=== PATIENT | male | born 1960 | race Caucasian/White ===

== ENCOUNTER 2016-10-28 09:19 | Inpatient (IN) ==
--- NOTE | 2016-10-28 09:48 | Emergency Department Note ---
Disposition Clinical Impression: Acute cholecystitis Disposition: Admitted As Inpatient Condition: Good Referrals: NO,PCP [Non-Partnered Physician] - Forms: Work/School Release, ED Satisfaction Letter Time of Disposition: 11:27 Abdominal Pain HPI - General Chief Complaint: ED Abdominal Pain Stated Complaint: lower rib cage / ABD pain Time Seen by Provider: 10/28/16 09:42 Source: patient Mode of arrival: ambulatory Limitations: no limitations Nursing Notes Reviewed: Yes Vital Signs Reviewed: Yes - History of Present Illness HPI Narrative: 56-year-old male who comes in complaining of right upper quadrant pain that began over the last couple of days. States about 2 hours after eating hamburger helper he developed the pain. She also states that he sprayed some bug spray didn't know if inhaling that would've caused the pain. No nausea vomiting no diarrhea. Pt Subjective Complaint: abdominal pain Onset (ago): day(s) Consistency: constant Location: RUQ Pain Severity: mild, moderate Pain Scale: 0 Quality: aching Radiation: none Migration to: no migration Improves with: nothing Worsens with: eating - Related Data Home Medications Medication Instructions Recorded Confirmed Lisinopril [Zestril] 10 mg PO 08/23/16 Turmeric Root Extract [Turmeric] 08/23/16 Previous Rx's Medication Instructions Recorded Meclizine HCl [Verticalm] 25 mg PO Q8H #15 tablet 08/23/16 Allergies Allergy/AdvReac Type Severity Reaction Status Date / Time No Known Allergies Allergy Verified 10/28/16 09:28 All systems ED: reviewed and negative except as stated. Constitutional: Denies: fever, chills, weakness, weight change Eyes: Denies: eye pain, eye discharge, vision change ENT ED: Denies: ear pain, throat pain, dental pain, hearing loss, epistaxis, congestion, dysphagia Cardiovascular: Denies: chest pain, palpitations, dyspnea on exertion, edema, syncope Respiratory: Denies: cough, dyspnea, wheezes, hemoptysis, stridor Gastrointestinal: Reports: abdominal pain. Denies: nausea, vomiting, diarrhea, constipation, hematemesis, melena, hematochezia Genitourinary: Denies: urgency, dysuria, frequency, hematuria Musculoskeletal: Denies: back pain, neck pain, arthralgia, myalgia Integumentary: Denies: rash, abrasion, lesions Neurological: Denies: headache, weakness, numbness, paresthesias, confusion, abnormal gait, vertigo Psychiatric: Denies: anxiety, depression, suicidal thoughts, homicidal thoughts , auditory hallucinations, visual hallucinations Endocrine: Denies: fatigue Hematological/Lymphatic: Denies: easy bleeding, easy bruising Allergic/Immunologic: Denies: facial swelling, urticaria Abdominal Pain PMH - Past Medical History Medical history: Reports: GERD, hypertension Male Surgical History: Reports: orthopedic, other, other Psychiatric history: Reports: depression - Social History Smoking status: Never smoker Alcohol use: Reports: none Drug use: Reports: none Physical Exam - General Limitations: no limitations General appearance: alert, in no apparent distress - Head Head exam: atraumatic, normocephalic, normal inspection - Eye Eye exam: Present: normal appearance, PERRL, EOMI - ENT ENT exam: normal exam, normal oropharynx, mucous membranes moist - Neck Neck exam: Present: normal inspection, full ROM, trachea midline - Chest Chest inspection: Present: normal inspection, symmetric chest wall rise - Respiratory Respiratory exam: Present: normal lung sounds bilaterally - Cardiovascular Cardiovascular exam: Present: regular rate, normal rhythm, normal heart sounds - Abdominal Exam Abdominal exam: Present: soft, tenderness. Absent: distention, guarding, rebound, rigidity Abdominal tenderness: Present: RUQ - Extremities Exam Extremities exam: Present: normal inspection, full ROM. Absent: tenderness, pedal edema - Expanded Lower Extremity Exam Neurovascular/Tendon exam: Absent: motor deficit, sensory deficit, tendon deficit Gait: observed and normal - Back Exam Back exam: Present: normal inspection, full ROM. Absent: tenderness - Neurological Exam Neurological exam: Present: alert, oriented X3 - Psychiatric Psychiatric exam: Present: normal affect, normal mood - Skin Skin exam: Present: warm, dry, intact, normal color Course - Reevaluation(s) Reevaluation #1: 56-year-old male comes in with right upper quadrant pain. Workup including ultrasound shows gallstones thickened gallbladder wall pericholecystic fluid. White count is normal. Liver functions are elevated. Patient will be admitted for MRCP, surgical consultation. Time: 12:09 - Consultations Consultation #1: Discussed with Dr. Jeferson salas to hospitalist and obtain an MRCP. Time: 11:25 Consultation #2: Discussed with maritza Henry. Time: 12:09 Vital Signs Temperature 98 F 06/07/17 09:23 Pulse Rate 80 10/28/16 09:23 Respiratory Rate 16 10/28/16 09:23 Blood Pressure 151/83 10/28/16 09:23 O2 Sat by Pulse Oximetry 96 10/28/16 09:23 Temperature 98 F 10/28/16 09:23 Pulse Rate 80 10/28/16 11:50 Respiratory Rate 16 10/28/16 11:50 Blood Pressure 134/90 10/28/16 11:50 O2 Sat by Pulse Oximetry 100 10/28/16 11:50 Oxygen Delivery Oxygen Delivery Room Air Abdominal Pain - Lab Data Lab results reviewed: Yes I reviewed the patient's lab results. Result diagrams: 10/28/16 09:50 10/28/16 09:50 Lab Results 10/28/16 10/28/16 10/28/16 Range/Units 09:49 09:50 09:50 WBC 7.2 (4.3-11.1) K/mcL RBC 5.19 (4.19-5.50) M/mcL Hgb 15.4 (12.9-16.9) g/dL Hct 45.9 (37.5-50.1) % MCV 88.4 (83.0-100.0) fL MCH 29.7 (28.0-33.3) pg MCHC 33.6 (31.6-35.5) g/dL RDW 12.7 (11.5-14.5) % Plt Count 190 (140-400) K/mcL MPV 9.0 L (9.4-12.4) fL Immature Gran % 0.4 (0-4) % Seg Neutrophils % 71.7 % Lymphocytes % 13.8 % Monocytes % 12.0 % Eosinophils % 1.7 % Basophils % 0.4 % Neutrophils # 5.2 (1.6-8.9) K/mcL Lymphocytes # 1.0 (0.6-4.6) K/mcL Monocytes # 0.9 (0.0-1.3) K/mcL Eosinophils # 0.1 (0.0-0.6) K/mcL Basophils # 0.0 (0.0-0.2) K/mcL Sodium 138 (136-145) mEq/L Potassium 4.5 (3.5-4.5) mEq/L Chloride 106 (98-109) mEq/L Carbon Dioxide 26 (19-29) mEq/L BUN 13 (8-26) mg/dL Creatinine 0.95 (0.72-1.25) mg/dL Est GFR ( Amer) > 60 (> 60) Est GFR (Non-Af Amer) > 60 (> 60) BUN/Creatinine Ratio 14 (6-26) Glucose 112 H (70-99) mg/dL Calculated Osmolality 287 (280-300) Calcium 9.9 (8.6-10.8) mg/dL Total Bilirubin 2.3 H (0.2-1.2) mg/dL Direct Bilirubin 1.4 H (0.0-0.5) mg/dL Indirect Bilirubin 0.9 (0.0-1.2) mg/dL AST 211 H (5-34) Units/L ALT 506 H (0-55) Units/L Alkaline Phosphatase 226 H (38-126) Units/L Serum Total Protein 7.2 (6.0-8.3) g/dL Albumin 3.6 (3.5-5.0) g/dL Globulin 3.6 H (2.4-3.5) g/dL Albumin/Globulin Ratio 1.0 L (1.1-2.2) Amylase 78 (25-125) Units/L Lipase 221 H (8-78) Units/L Urine Color Dark Yellow (Yellow) Urine Clarity Clear (Clear) Urine pH 6.0 (5.0-8.0) pH Units Ur Specific [place] 1.023 (1.010-1.025) Urine Protein Negative (Neg-Trace) mg/dL Urine Glucose (UA) Normal (Normal) mg/dL Urine Ketones Negative (Negative) mg/dL Urine Blood Trace H (Negative) Urine Nitrite Negative (Negative) Urine Bilirubin Moderate H (Negative) Urine Urobilinogen Normal (Normal) mg/dL Ur Leukocyte Esterase Small H (Negative) Urine Microscopic RBC 0-3 (0-3) per hpf Urine Microscopic WBC 0-3 (0-3) per hpf Urine Bacteria None Seen (None-Few) per hpf Ur Culture Indicated? YES A (NO) - Radiology Data Radiology results reviewed: Yes I reviewed the patient's radiology results. Gallbladder Ultrasound 10/28/16 09:46 IMPRESSION: 1. Findings concerning for acute cholecystitis. 2. Hepatic steatosis. D/ / William Cueto MD / William Cueto MD Interpreting Provider: William Cueto MD
[2016-10-28 10:08] LABS: Bilirubin,Urine Moderate (Negative); Blood,Urine Trace (Negative); Clarity,Urine Clear (Clear); Color,Urine Dark Yellow (Yellow); Glucose,Urine (UA) Normal (Normal); Ketones,Urine Negative (Negative); Specific Gravity,Urine 1.023 (1.010-1.025)
[2016-10-28 10:09] LABS: Leukocyte Esterase,Urine Small (Negative); Nitrite,Urine Negative (Negative); Protein,Urine Negative (Neg-Trace); Urobilinogen,Urine Normal (Normal)
[2016-10-28 10:16] LABS: RBC,Urine 0-3 per hpf (0-3)
[2016-10-28 10:17] LABS: Bacteria,Urine None Seen per hpf (None-Few); WBC,Urine 0-3 per hpf (0-3)
[2016-10-28 11:01] LABS: Basophils % 0.4 %; Eosinophils # 0.1 K/mcL (0.0-0.6); Eosinophils % 1.7 %; Hematocrit 45.9 % (37.5-50.1); Hemoglobin 15.4 g/dL (12.9-16.9); Immature Granulocytes % 0.4 % (0-4); Lymphocytes % 13.8 %; Mean Corpuscular HGB Conc 33.6 g/dL (31.6-35.5); Mean Corpuscular Hemoglobin 29.7 pg (28.0-33.3); Mean Corpuscular Volume 88.4 fL (83.0-100.0); Monocytes # 0.9 K/mcL (0.0-1.3); Neutrophils # 5.2 K/mcL (1.6-8.9); Platelet Count 190 K/mcL (140-400); Red Blood Count 5.19 M/mcL (4.19-5.50); Red Cell Distribution Width 12.7 % (11.5-14.5); Segmented Neutrophils % 71.7 %
[2016-10-28 11:05] LABS: Alanine Aminotransferase 506 Units/L (0-55); Albumin 3.6 g/dL (3.5-5.0); Alkaline Phosphatase 226 Units/L (38-126); Amylase 78 Units/L (25-125); Aspartate Amino Transferase 211 Units/L (5-34); BUN/Creatinine Ratio 14 (6-26); Bilirubin,Direct 1.4 mg/dL (0.0-0.5); Bilirubin,Indirect 0.9 mg/dL (0.0-1.2); Bilirubin,Total 2.3 mg/dL (0.2-1.2); Blood Urea Nitrogen 13 mg/dL (8-26); Calcium 9.9 mg/dL (8.6-10.8); Carbon Dioxide 26 mEq/L (19-29); Chloride 106 mEq/L (98-109); Globulin 3.6 g/dL (2.4-3.5); Glucose 112 mg/dL (70-99); Lipase 221 Units/L (8-78); Osmolality,Calculated 287 (280-300); Potassium 4.5 mEq/L (3.5-4.5); Sodium 138 mEq/L (136-145); Total Protein 7.2 g/dL (6.0-8.3); eGFR For African Americans > 60 (> 60); eGFR For Non-African Americans > 60 (> 60)
[2016-10-28] MEDS ORDERED: Piperacillin/Tazobactam 3.375 GM in D5% in Water (Mini-Bag+) 100 ML IVPB ONE (12:08)
[2016-10-28] MEDS ORDERED: Ondansetron 4 MG/2 ML VIAL IVP PRN (12:29)
[2016-10-28] MEDS ORDERED: *HR* Morphine 2 MG/ML SYRINGE IVP PRN (12:29)
[2016-10-28] MEDS ORDERED: Naloxone 0.4 MG/ML INJ IVP PRN (12:29)
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
[2016-10-28 13:34] LABS: INR 1.1; Prothrombin Time 11.7 Seconds (9.4-12.1)
[2016-10-28 14:35] LABS: Hepatitis A Antibody IgM Nonreactive (Nonreactive); Hepatitis B Core IgM Nonreactive (Nonreactive); Hepatitis B Surface Antigen Nonreactive (Nonreactive); Hepatitis C Virus Antibody Nonreactive (Nonreactive)
[2016-10-28] MEDS: 0.9 % Sodium Chloride 1,000 ML IVC SCH (15:00)
[2016-10-28] MEDS: Piperacillin/Tazobactam 3.375 GM in D5% in Water (Mini-Bag+) 100 ML IVPB SCH (21:02)
[2016-10-29] MEDS: 0.9 % Sodium Chloride 1,000 ML IVC SCH ×2 (02:07→14:29)
[2016-10-29] MEDS: Piperacillin/Tazobactam 3.375 GM in D5% in Water (Mini-Bag+) 100 ML IVPB SCH ×2 (04:48→21:32)
[2016-10-29 05:52] LABS: Basophils % 0.5 %; Eosinophils # 0.2 K/mcL (0.0-0.6); Eosinophils % 3.7 %; Hematocrit 43.8 % (37.5-50.1); Hemoglobin 14.8 g/dL (12.9-16.9); Immature Granulocytes % 0.5 % (0-4); Lymphocytes # 1.4 K/mcL (0.6-4.6); Lymphocytes % 23.5 %; Mean Corpuscular HGB Conc 33.8 g/dL (31.6-35.5); Mean Corpuscular Hemoglobin 30.3 pg (28.0-33.3); Mean Corpuscular Volume 89.8 fL (83.0-100.0); Mean Platelet Volume 9.2 fL (9.4-12.4); Monocytes # 0.8 K/mcL (0.0-1.3); Monocytes % 12.8 %; Neutrophils # 3.5 K/mcL (1.6-8.9); Platelet Count 186 K/mcL (140-400); Red Blood Count 4.88 M/mcL (4.19-5.50); Red Cell Distribution Width 12.8 % (11.5-14.5)
[2016-10-29 07:40] LABS: Albumin 3.3 g/dL (3.5-5.0); Bilirubin,Direct 0.6 mg/dL (0.0-0.5); Bilirubin,Indirect 0.7 mg/dL (0.0-1.2); Bilirubin,Total 1.3 mg/dL (0.2-1.2); Globulin 3.2 g/dL (2.4-3.5); Magnesium 1.8 mg/dL (1.6-2.6); Total Protein 6.5 g/dL (6.0-8.3)
--- NOTE | 2016-10-29 10:07 | Anesthesia Evaluation PreOp ---
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 (Depression) Other Medical History: Hepatic (steatosis), GERD Anesthesia History: No Prior Anesthetic Complications, Past Anesthesia Alcohol Use: none Drug use: none Medications and Allergies Lisinopril [Zestril] 10 mg PO DAILY 08/23/16 [History] ASA/Calcium Carb/Mag/Al Hydrox [Rodrick Plus 500 mg Caplet] 500 mg PO DAILY PRN [History] Famotidine [Pepcid] 20 mg PO DAILY 10/28/16 [History] Allergies No Known Allergies Allergy (Verified 10/28/16 12:16) - Meds/Allergy Pre-op Review Medications Reviewed: Yes Allergies Reviewed: Yes Beta Blockers on Current Med List: No Anesthesia Results - Labs 10/29/16 05:29 10/28/16 09:50 - Imaging EKG: image reviewed (SR, Right nentricular conduction delay) Anesthesia Exam O2 Sat Weight 100.062 kg O2 Sat by Pulse Oximetry 97 O2 Sat by Pulse Oximetry 97 O2 Sat by Pulse Oximetry 97 O2 Sat by Pulse Oximetry 98 O2 Sat by Pulse Oximetry 98 O2 Sat by Pulse Oximetry 100 Vital Signs Temp Pulse Resp BP Pulse Ox 98 F 80 16 151/83 96 10/28/16 09:23 10/28/16 09:23 10/28/16 09:23 10/28/16 09:23 10/28/16 09:23 Vital Signs/O2 Sat, Most Current Temp Pulse Resp BP Pulse Ox 98.0 F 60 16 113/72 97 10/29/16 07:30 10/29/16 07:30 10/29/16 07:30 10/29/16 07:30 10/29/16 07:30 - HEENT Pupil (Motor): Pupils equal, EOMI Mallampati: II Teeth: Normal Oral Opening: Greater than 3 - 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
--- NOTE | 2016-10-29 10:48 | Operative Note ---
Date of procedure: 10/29/16 Pre-op diagnosis: Acute cholecystitis Post-op diagnosis: same Procedure: Laparoscopic cholecystectomy with cholangiogram Anesthesia: RENEE Surgeon: Alonso Govea Estimated blood loss (cc): 5 Specimen: Gallbladder Procedure in Detail: After informed consent this patient was taken the operating room placed supine position. After adequate sedation anesthesia the abdomen was prepped and draped. A proper timeout was performed. Two towel clamps are placed at the umbilicus and a Veres needle was inserted into the abdomen. A 5 mm incision was made at the umbilicus. A 12 mm incision was made in the subxiphoid region. Two 5 mm incisions were made in the right upper quadrant that were 4 finger breadths and 6 finger breadths below the costal margin. The gallbladder was identified, retracted anteriorly and cephalad, and the infundibulum was skeletonized. The cystic duct was easily identified and was dissected free. A ductotomy was created in the cystic duct. A taut catheter was placed within the cystic duct and clipped. A cholangiogram was performed. Contrast filled the cystic duct, common hepatic duct, hepatic radicles, and the distal common bile duct. There was flow of contrast into the duodenum. Once this was confirmed the clippers removed, the taut catheter was removed as well, and the cystic duct was clipped distally. The cystic duct was then transected with scissors. The gallbladder was resected off the liver surface. There was excellent hemostasis. The gallbladder was then retrieved through the 12 mm cannula site. At this point the abdomen was suctioned dry and the pneumoperitoneum was then evacuated. All ports were removed. The 12 mm cannula site was closed with an 0 Vicryl suture in [id number] fashion. The skin was closed with 4-0 Vicryl suture. Dermabond was placed as well. All instrument counts and needle counts are correct in the operation. She tolerated the procedure well and was transferred to the PACU in stable condition.
[2016-10-29] MEDS ORDERED: *HR* Promethazine 25 MG/ML VIAL IVP PRN ×2 (11:39→12:42)
[2016-10-29] MEDS ORDERED: *HR* Labetalol 20 MG/4 ML SYRINGE IVP PRN ×2 (11:39→12:42)
[2016-10-29] MEDS ORDERED: Ondansetron 4 MG/2 ML VIAL IVP ONE ×2 (11:39→12:42)
[2016-10-29] MEDS ORDERED: *HR* Morphine 2 MG/ML SYRINGE IVP PRN ×4 (11:39→14:09)
[2016-10-29] MEDS ORDERED: *HR* HYDROmorphone (PF) 1 MG/ML SYRINGE IVP PRN ×2 (11:39→12:42)
[2016-10-29] MEDS ORDERED: CefOXitin 2,000 MG VIAL IVPB ONE (12:13)
[2016-10-29] MEDS ORDERED: Ondansetron 4 MG/2 ML VIAL ONE (12:13)
[2016-10-29] MEDS ORDERED: Dexamethasone 4 MG/ML VIAL ONE (12:13)
[2016-10-29] MEDS ORDERED: *HR* Succinylcholine 200 MG/10 ML VIAL IVP ONE (12:13)
[2016-10-29] MEDS ORDERED: Neostigmine Methylsulfate 3 MG/3 ML SYRINGE ONE (12:13)
[2016-10-29] MEDS ORDERED: *HR* Rocuronium Bromide 50 MG/5 ML VIAL ONE (12:14)
[2016-10-29] MEDS ORDERED: *HR* Propofol 200 MG/20 ML VIAL IVP ONE (12:14)
[2016-10-29] MEDS ORDERED: Lidocaine -MPF 2% 2 ML VIAL ONE (12:14)
[2016-10-29] MEDS ORDERED: *HR* FentaNYL (PF) 100 MCG/2 ML VIAL ONE (12:14)
[2016-10-29] MEDS ORDERED: *HR* Midazolam HCl 2 MG/2 ML VIAL ONE (12:14)
[2016-10-29] MEDS ORDERED: Ondansetron 4 MG/2 ML VIAL IVP PRN (12:42)
[2016-10-29] MEDS ORDERED: Naloxone 0.4 MG/ML INJ IVP PRN (12:42)
--- NOTE | 2016-10-29 12:42 | Anesthesia Evaluation Post Op ---
Date of Encounter: 10/29/16 Time of Encounter: 12:42 - Vital Signs Vital Signs: Vital Signs/O2 Sat/Glucose, Most Current Temp Pulse Resp BP Pulse Ox 10/29/16 12:31 66 16 147/82 97 10/29/16 12:21 66 16 159/89 97 10/29/16 12:11 97.4 F L 67 16 148/92 98 - Lungs Lungs: Clear Ascult./Percussion - Airway Airway: Non-obstructed - Cardiovascular Regular Rate - Mental Status Mental Status: Alert & Oriented, Answers Appropriately - Pain Pain Scale: 2 Pain Scale used: Numeric (1 - 10) - Nausea Vomiting Nausea Vomiting: Not Present - Hydration Hydration: NPO - Discharge PostOp Status: Transfer Patient to floor
[2016-10-29] MEDS ORDERED: *HR* Morphine 2 MG/ML SYRINGE ONE (12:57)
--- NOTE | 2016-10-29 15:36 | Internal Med Progress Note ---
Date of Encounter: 10/29/16 Time of Encounter: 09:00 - Assessment and plan (1) Acute cholecystitis Current Visit: Yes Status: Acute Assessment and plan: Awaiting surgical evaluation. MRI of the abdomen does not show any choledocholithiasis. Patient will most likely need laparoscopic cholecystectomy. Liver enzymes are trending down. Lipase remains elevated. High risk for complications due to use of intravenous narcotic medications to control pain (2) Essential hypertension Current Visit: Yes Status: Chronic Assessment and plan: On hydralazine as needed. Resume home medications after surgery. (3) DVT prophylaxis Current Visit: Yes Status: Acute Assessment and plan: Will start DVT prophylaxis with subcutaneous heparin after surgery (4) Hepatic steatosis Current Visit: Yes Status: Chronic Assessment and plan: Liver enzymes trending down. Follow up outpatient with PCP. - Subjective Interval history: Patient is awake and alert. Not having significant abdominal pain this morning. Feels hungry and thirsty. Awaiting surgical evaluation - Constitutional Vitals: Temp Pulse Resp BP Pulse Ox 97.4 F L 80 16 144/82 98 10/29/16 14:10 10/29/16 14:10 10/29/16 14:10 10/29/16 14:10 10/29/16 14:10 General appearance: Present: cooperative, mild distress, A&O X 3, answers questions appropriately - Neck Neck exam general surgery: Present: supple, trachea midline. Absent: lymphadenopathy - Respiratory Respiratory exam: Present: CTAB. Absent: accessory muscle use, rales, rhonchi, wheezes - Cardiovascular Cardiovascular exam: Present: RRR, +S1, +S2. Absent: diastolic murmur, gallop, rubs, systolic murmur - GI/Abdominal GI/Abdominal exam: Present: normal bowel sounds, soft, no peritoneal signs. Absent: distended, tenderness - Extremities Exam Extremities exam: Present: warm, radial pulses palpable and symetrical. Absent : calf tenderness, cyanotic, pedal edema - Neurological Exam Neurological exam: Present: alert, oriented X3, no focal deficits. Absent: facial droop, speech deficit Internal Medicine: Result - Labs CBC & Chem 7: 10/29/16 05:29 10/28/16 09:50 Labs: Short CBC 10/29/16 Range/Units 05:29 WBC 6.0 (4.3-11.1) K/mcL Hgb 14.8 (12.9-16.9) g/dL Hct 43.8 (37.5-50.1) % Plt Count 186 (140-400) K/mcL Neutrophils # 3.5 (1.6-8.9) K/mcL Liver Function 10/29/16 Range/Units 05:29 Total Bilirubin 1.3 H (0.2-1.2) mg/dL Direct Bilirubin 0.6 H (0.0-0.5) mg/dL AST 93 H (5-34) Units/L ALT 348 H (0-55) Units/L Alkaline Phosphatase 206 H (38-126) Units/L Albumin 3.3 L (3.5-5.0) g/dL - ABG Interpretation ABG results: PT/INR, D-dimer PT 11.7 Seconds (9.4-12.1) 10/28/16 10:44 - Impressions Impressions Abdomen MRI 10/28/16 12:42 IMPRESSION: 1. Small gallstones and sludge. No visualized evidence of cholecystitis. An ultrasound may be more sensitive. 2. No evidence of biliary ductal dilation. No evidence of choledocholithiasis. D/ / 10/28/2016 20:19:15 Easton Garcia MD / [facility] Interpreting Provider: Easton Garcia MD Cholangiogram,Operative 10/29/16 10:54 IMPRESSION: Unremarkable intraoperative ERCP. D/ / Howard Webb MD / Howard Webb MD Interpreting Provider: Howard Webb MD - VTE Documentation of Mechanical Device: Venous foot pump, device Consult Discharge Plan - Plan Referrals: Kyara Romero, [employer] [Primary Care Provider] - 11/09/16 10:15 am - Attending Attestation This document has been at least partially created by [employer] recognition technology by Dr. Ascencio. Errors in grammar, wording or other phrases may exist. If errors are found after the documentation is signed, they will be addressed individually in the addendum section of this document when appropriate.
[2016-10-29] MEDS: *HR* HYDROmorphone (PF) 1 MG/ML SYRINGE IVP PRN ×2 (16:41→21:33)
[2016-10-29] MEDS ORDERED: Methocarbamol 750 MG TABLET PO PRN (21:56)
[2016-10-30] MEDS: *HR* HYDROmorphone (PF) 1 MG/ML SYRINGE IVP PRN ×2 (01:32→05:13)
[2016-10-30] MEDS: *HR* Heparin 5,000 UNIT/ML VIAL SQ SCH ×3 (05:12→17:18)
[2016-10-30] MEDS: Piperacillin/Tazobactam 3.375 GM in D5% in Water (Mini-Bag+) 100 ML IVPB SCH ×3 (05:15→19:50)
[2016-10-30 05:52] LABS: Basophils % 0.1 %; Eosinophils % 0.2 %; Hematocrit 41.8 % (37.5-50.1); Hemoglobin 13.7 g/dL (12.9-16.9); Immature Granulocytes % 0.4 % (0-4); Lymphocytes % 8.5 %; Mean Corpuscular HGB Conc 32.8 g/dL (31.6-35.5); Mean Corpuscular Hemoglobin 29.3 pg (28.0-33.3); Mean Corpuscular Volume 89.3 fL (83.0-100.0); Monocytes % 8.7 %; Neutrophils # 9.4 K/mcL (1.6-8.9); Platelet Count 206 K/mcL (140-400); Red Blood Count 4.68 M/mcL (4.19-5.50); Red Cell Distribution Width 12.7 % (11.5-14.5); Segmented Neutrophils % 82.1 %
[2016-10-30 06:05] LABS: Alanine Aminotransferase 277 Units/L (0-55); Aspartate Amino Transferase 59 Units/L (5-34); Chloride 107 mEq/L (98-109); Potassium 4.3 mEq/L (3.5-4.5); Sodium 140 mEq/L (136-145)
[2016-10-30 06:18] LABS: Albumin 3.1 g/dL (3.5-5.0); Albumin/Globulin Ratio 0.9 (1.1-2.2); Alkaline Phosphatase 170 Units/L (38-126); BUN/Creatinine Ratio 19 (6-26); Bilirubin,Total 0.9 mg/dL (0.2-1.2); Blood Urea Nitrogen 16 mg/dL (8-26); Calcium 8.8 mg/dL (8.6-10.8); Carbon Dioxide 24 mEq/L (19-29); Globulin 3.4 g/dL (2.4-3.5); Glucose 119 mg/dL (70-99); Osmolality,Calculated 292 (280-300); Total Protein 6.5 g/dL (6.0-8.3); eGFR For African Americans > 60 (> 60); eGFR For Non-African Americans > 60 (> 60)
[2016-10-30] MEDS ORDERED: *HR* OxyCODONE Immed Rel 5 MG TABLET PO PRN ×2 (07:55→11:37)
[2016-10-30] MEDS ORDERED: *HR* HYDROmorphone (PF) 1 MG/ML SYRINGE IVP PRN ×2 (07:57→11:37)
[2016-10-30] MEDS: 0.9 % Sodium Chloride 1,000 ML IVC SCH ×3 (11:08→22:30)
[2016-10-30] MEDS: Ketorolac 15 MG/ML VIAL IVP PRN ×2 (13:22→19:50)
--- NOTE | 2016-10-30 14:27 | General Surgery Progress Note ---
Date of Encounter: 10/30/16 Time of Encounter: 14:20 - Assessment and Plan (1) Acute cholecystitis Current Visit: Yes Status: Acute Patient may be advanced to regular diet. We will sign off at this point he may be discharged from our standpoint whenever the medicine team feels he is appropriate to go. Subjective Patient reports: other (Patient complains of dizziness. States he is hungry for hamburger) Objective Vital Signs - Last 8 Hours Temp Pulse Resp BP Pulse Ox 10/30/16 12:19 98.5 F 78 18 137/84 93 10/30/16 10:46 98.0 F 79 16 132/77 96 Intake and Output 10/29/16 10/30/16 10/30/16 23:59 07:59 15:59 Intake Total 1100 / 1100 220 / 220 Balance 1100 / 1100 220 / 220 Intake: IV Fluids 1100 / 1100 100 / 100 0.9 % Sodium Chloride 1, 1000 / 1000 000 ML @ 100 mls/hr IVC . Q10H TASHA Rx#:[id number] Zosyn 3.375 GM In 100 / 100 100 / 100 Dextrose 5% (Minibag+) 100 ML 100 ML @ 25 mls/hr IVPB Q8H TASHA Rx#: [id number] Oral 120 / 120 Other: Meal Breakfast Percent of Meal Consumed 15% # Voids 1 Weight 100.1 kg Patient Weight 10/30/16 23:59 Weight 100.1 kg - General physical appearance well nourished - Eyes PERRL, normal ocular movement - ENT normal nares - Respiratory normal expansion - Cardiovascular Cardiovascular exam: Present: RRR - Abdomen Abdomen: Present: bowel sounds present - Psychiatric oriented to time, oriented to person, oriented to place, other (Patient does have a not affect with inappropriate comments at times) - Labs 10/30/16 05:05 10/30/16 05:05 Diabetes panel 10/30/16 Range/Units 05:05 Sodium 140 (136-145) mEq/L Potassium 4.3 (3.5-4.5) mEq/L Chloride 107 (98-109) mEq/L Carbon Dioxide 24 (19-29) mEq/L BUN 16 (8-26) mg/dL Creatinine 0.84 (0.72-1.25) mg/dL Glucose 119 H (70-99) mg/dL Calcium 8.8 (8.6-10.8) mg/dL AST 59 H (5-34) Units/L ALT 277 H (0-55) Units/L Alkaline Phosphatase 170 H (38-126) Units/L Albumin 3.1 L (3.5-5.0) g/dL Calcium panel 10/30/16 Range/Units 05:05 Calcium 8.8 (8.6-10.8) mg/dL Albumin 3.1 L (3.5-5.0) g/dL Pituitary panel 10/30/16 Range/Units 05:05 Sodium 140 (136-145) mEq/L Potassium 4.3 (3.5-4.5) mEq/L Chloride 107 (98-109) mEq/L Carbon Dioxide 24 (19-29) mEq/L BUN 16 (8-26) mg/dL Creatinine 0.84 (0.72-1.25) mg/dL Glucose 119 H (70-99) mg/dL Calcium 8.8 (8.6-10.8) mg/dL Adrenal panel 10/30/16 Range/Units 05:05 Sodium 140 (136-145) mEq/L Potassium 4.3 (3.5-4.5) mEq/L Chloride 107 (98-109) mEq/L Carbon Dioxide 24 (19-29) mEq/L BUN 16 (8-26) mg/dL Creatinine 0.84 (0.72-1.25) mg/dL Glucose 119 H (70-99) mg/dL Calcium 8.8 (8.6-10.8) mg/dL Total Bilirubin 0.9 (0.2-1.2) mg/dL AST 59 H (5-34) Units/L ALT 277 H (0-55) Units/L Alkaline Phosphatase 170 H (38-126) Units/L Albumin 3.1 L (3.5-5.0) g/dL - VTE Documentation of Mechanical Device: Intermittent pneumatic compression device Consult Discharge Plan - Plan Referrals: Kyara Romero CNP [Primary Care Provider] - 11/09/16 10:15 am
[2016-10-31] MEDS: Ketorolac 15 MG/ML VIAL IVP PRN (02:24)
[2016-10-31] MEDS: Piperacillin/Tazobactam 3.375 GM in D5% in Water (Mini-Bag+) 100 ML IVPB SCH (04:55)
[2016-10-31] MEDS: *HR* Heparin 5,000 UNIT/ML VIAL SQ SCH (04:56)
[2016-10-31 06:56] VITALS: BP 126/73
[2016-10-31] MEDS ORDERED: Ibuprofen 400 MG TABLET PO PRN (09:05)
--- NOTE | 2016-10-31 10:17 | Discharge Summary ---
Date of Encounter: 10/31/16 Time of Encounter: 08:50 - Discharge Diagnosis (1) Acute cholecystitis Priority: Primary Status: Acute (2) Essential hypertension Priority: Secondary Status: Chronic (3) DVT prophylaxis Priority: Secondary Status: Acute (4) Hepatic steatosis Priority: Secondary Status: Chronic - Discharge Medications Prescriptions: Ibuprofen [Motrin] 800 mg PO Q8HR PRN #30 tablet PRN Reason: Pain Calcium Carbonate [Tums] 1,000 mg PO QID PRN #60 tab.chew PRN Reason: Indigestion Docusate [Colace] 100 mg PO BID PRN #20 capsule PRN Reason: Constipation Omeprazole [PriLOSEC] 40 mg PO DAILY #30 cap Home Medications: Lisinopril [Zestril] 10 mg PO DAILY 08/23/16 [History] ASA/Calcium Carb/Mag/Al Hydrox [Rodrick Plus 500 mg Caplet] 500 mg PO DAILY PRN [History] Calcium Carbonate [Tums] 1,000 mg PO QID PRN #60 tab.chew 10/31/16 [Rx] Docusate [Colace] 100 mg PO BID PRN #20 capsule 10/31/16 [Rx] Ibuprofen [Motrin] 800 mg PO Q8HR PRN #30 tablet 10/31/16 [Rx] Omeprazole [PriLOSEC] 40 mg PO DAILY #30 cap 10/31/16 [Rx] Allergies/Adverse Reactions: Allergies No Known Allergies Allergy (Verified 10/28/16 12:16) Procedures/tests Complete & Pending: Procedures Performed prior 72 hours Category Date Time Status MRCP [MR abdomen wo con] [MR] Stat MRI 10/28/16 12:42 Completed Date of admission: 10/28/16 12:29 Primary care physician: Kyara Romero CNP Consults: 10/28/16 11:42 Consult to Surgery [CONS] Stat Consulting Provider: [facility] Reason for Consult: Acute cholecystitis Time Notified: 11:42 Call Completed: Yes Discharging clinician: Negra Ascencio Anticipated date of discharge: 10/31/16 - Patient Status Disposition: Home, Self-Care Condition: Good Functional capacity at discharge: independent ambulation Overall status at discharge: patient is progressing back to baseline - Discharge Instructions Follow Up With: Heather,Kyara S, [employer] [Primary Care Provider] - 11/09/16 10:15 am - Diet and Activity Activity: increase activity as tolerated Diet: low fat, low cholesterol, low salt diet Hospital course: Mr. Girard is a 56 year old male patient with a history of essential hypertension and was admitted here with acute abdominal pain with nausea and vomiting. He was diagnosed with acute cholecystitis. He underwent an MRCP which did not show any choledocholithiasis. Surgery was consulted. Patient underwent laparoscopic cholecystectomy per their recommendations. Since then has been recovering well with intravenous medications to control his pain. He is not tolerating diet well. Overall is feeling much better although he does have significant muscle pain in his neck post surgery and some abdominal pain. She will be discharged today on oral medications and will follow up with his primary care provider and surgeon after discharge for further management. - Time Spent with Patient Total time spent providing and/or coordinating discharge services: Greater than 30 minutes (35 min) - Constitutional Vitals: Temp Pulse Resp BP Pulse Ox 98.3 F 81 18 126/73 95 10/31/16 06:51 10/31/16 06:51 10/31/16 06:51 10/31/16 06:51 10/31/16 06:51 General appearance: Present: cooperative, mild distress, A&O X 3, answers questions appropriately - Respiratory Respiratory exam: Present: CTAB. Absent: accessory muscle use, rales, rhonchi, wheezes - Cardiovascular Cardiovascular exam: Present: RRR, +S1, +S2. Absent: diastolic murmur, gallop, rubs, systolic murmur - GI/Abdominal GI/Abdominal exam: Present: distended, normal bowel sounds, soft, no peritoneal signs. Absent: tenderness - Neurological Exam Neurological exam: Present: alert, oriented X3, no focal deficits. Absent: facial droop, speech deficit - Skin Skin exam: Present: dry, intact - VTE Documentation of Mechanical Device: Intermittent pneumatic compression device - Attending Attestation This document has been at least partially created by VYou recognition technology by Dr. Ascencio. Errors in grammar, wording or other phrases may exist. If errors are found after the documentation is signed, they will be addressed individually in the addendum section of this document when appropriate.
== END 2016-10-31 11:35 | disposition home or self-care (01) | DRG 419 ==
LOC: 3ANU 09:19 → EMEROO 09:19 → 2ANU 12:17
PROVIDERS: ADMIT Internal Medicine; ATTEND Internal Medicine Endocrinology, Diabetes & Metabolism